=== PATIENT | female | born 1995 | race Caucasian/White ===

== ENCOUNTER 2024-04-12 09:46 | Outpatient (REF) | payer BC, SELFPAY | END 2024-04-12 09:47 | disposition home or self-care (01) | LOC: HO.HOSX 09:46 | PROVIDERS: PCP Student in an Organized Health Care Education/Training Program; Visit Provider Physical Medicine & Rehabilitation | DX: G89.29 Other chronic pain (principal); M54.9 Dorsalgia, unspecified; M79.18 Myalgia, other site; M54.2 Cervicalgia | CPT/HCPCS: 72040; 72072; 72100 ==

== ENCOUNTER 2024-04-12 09:46 | Outpatient (AMB) | payer BC, SELFPAY ==
--- NOTE | 2024-04-12 10:15 | A.OFFVIS_ITS ---
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 Patient states the pain has worsened since it first started when she was 16 years old. Denies prior injuries or surgeries to the back or neck. Denies numbness, tingling, weakness on her upper or lower extremities. Patient reports being able to ambulate and use stairs without problem. She has tried PT for her back. Allergies No Known Allergies Allergy (Verified 04/12/24 10:19) Medication List - Last Reconciled 04/12/24 by Natalia Mercado MD escitalopram oxalate (Lexapro) 20 mg PO DAILY ibuprofen 200 mg PO Q6H PRN HPI Comments Details: Chronic pain since 16 without inciting injuries. 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 She notices right side leg numbness only when she sits crossed leg. Last xray was over 10 years ago. Last PT was several years ago. Walks for exercises, 2 times/week. 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 Patient was appropriately conversant and oriented. Good historian. MSK: Inspection reveals appropriate head and neck positioning. Some tightness over right upper trapezius. Some tenderness over right SI joint. Cervical ROM was full. Spurling's sign negative. Bilateral shoulder, elbow and wrist ROM WNL. No ligamentous laxity or crepitance. No increased effusion. No specific abnormalities or instability found on inspection and palpation of the spine and extremities. Lumbar ROM was full. Negative LOIS. Negative SLR. Strength is 5/5 in all muscle groups tested. No increased tone noted. Neurological: Neurologic examination of the upper and lower extremities was nonfocal with intact sensation, muscle stretch reflexes and without focal motor deficits . Becker?s negative bilaterally. Gait is non-antalgic without loss of balance. Patient was able to perform heel walk and toe walk. Results Reviewed Results Reviewed: I reviewed records from the following: PCP at [facility] Assessment & Plan Assessment & Plan (1) Chronic back pain: Code(s): M54.9 - Dorsalgia, unspecified; G89.29 - Other chronic pain Category: Medical Qualifiers: Back pain location: low back pain Back pain laterality: midline Sciatica presence: without sciatica Qualified Code(s): M54.50 - Low back pain, unspecified; G89.29 - Other chronic pain (2) Myofascial pain: Code(s): M79.18 - Myalgia, other site Category: Medical (3) Sacroiliac joint dysfunction of right side: Code(s): M53.3 - Sacrococcygeal disorders, not elsewhere classified Category: Medical Plan Chronic axial pain, without signs of myelopathy or radiculopathy. Suspect myofascial. Possible SI joint related as well. We will start physical therapy but discussed that this is only an introduction for which should lead her to doing home exercises. We talked about long-term change of lifestyle that includes more regular exercises. Due to chronicity, we will send her for x-rays today. Assessment and plan discussed with patient, and patient was agreeable. All questions were answered thoroughly. Follow up 2 months. Natalia Mercado MD, MELINDA Board Certified, [place] Board of Physical Medicine and Rehabilitation (ABPMR) Board Certified, [place] Board of Electrodiagnostic Medicine (ABEM) Orders: Orders PT Evaluation and Treatment Today G89.29 - Other chronic pain, M54.9 - Dorsalgia, unspecified, M79.18 - Myalgia, other site XR lumbar spine 2-3V Today G89.29 - Other chronic pain, M54.9 - Dorsalgia, unspecified, M79.18 - Myalgia, other site XR cervical spine 3V Today G89.29 - Other chronic pain, M54.2 - Cervicalgia, M54.9 - Dorsalgia, unspecified, M79.18 - Myalgia, other site XR thoracic spine 3V Today G89.29 - Other chronic pain, M54.9 - Dorsalgia, unspecified, M79.18 - Myalgia, other site Coding Level of Care Code New Pt Level 4 (69124) Diagnoses Chronic midline low back pain without sciatica M54.50; G89.29 Back pain location: low back pain Back pain laterality: midline Sciatica presence: without sciatica Myofascial pain M79.18 Sacroiliac joint dysfunction of right side M53.3
[2024-04-12 10:20] VITALS: BMI 32.6
== END 2024-04-12 11:42 | disposition home or self-care (01) ==
PROVIDERS: PCP Student in an Organized Health Care Education/Training Program; Visit Provider Physical Medicine & Rehabilitation
DX: M54.50 Low back pain, unspecified (principal); G89.29 Other chronic pain; M79.18 Myalgia, other site; M53.3 Sacrococcygeal disorders, not elsewhere classified
CPT/HCPCS: 99203

== ENCOUNTER → 2024-06-14 09:14 | Outpatient (AMB) | payer BC, SELFPAY ==
--- NOTE | 2024-06-14 09:17 | A.OFFVIS_ITS ---
Intake Visit Reasons: OV - Mid/Low Back Pain Intake Note: Anh is a 29 year old female who presents today for a follow up of her mid/low back pain. At her last visit it was discussed that this may by myofascial pain or possibly related to SI joint dysfunction. A PT order was placed for [facility] which she has been attending. Patient finds this has been helpful. Allergies No Known Allergies Allergy (Verified 06/14/24 09:19) Medication List - Last Reconciled 06/14/24 by Natalia Mercado MD escitalopram oxalate (Lexapro) 20 mg PO DAILY ibuprofen 200 mg PO Q6H PRN HPI Comments Details: Chronic pain since 16 without inciting injuries. 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 She notices right side leg numbness only when she sits crossed leg. Last xray was over 10 years ago. Last PT was several years ago. Walks for exercises, 2 times/week. Thought to be myofascial. Been going to physical therapy since last visit. X- rays are unremarkable, lumbar/thoracic/cervical. Slightly better. PT been taping, which has been helping. Not everyday pain anymore. Pain usually at work, where she stands at lot, but improved after work when resting at home. Non radicular. No numbness. 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 Patient was appropriately conversant and oriented. Good historian. MSK: Inspection reveals appropriate head and neck positioning. Tenderness over right SI joint. Some sit negative. No specific abnormalities or instability found on inspection and palpation of the spine and extremities. Lumbar ROM was full. Negative LOIS. Negative SLR. Strength is 5/5 in all muscle groups tested. No increased tone noted. Neurological: Neurologic examination of the upper and lower extremities was nonfocal with intact sensation, muscle stretch reflexes and without focal motor deficits . Becker?s negative bilaterally. Gait is non-antalgic without loss of balance. Results Reviewed Results Reviewed: Ordering Physician: Natalia Gamboa Date of Service: 04/12/24 Procedure(s): XR lumbar spine 2-3V Accession Number(s): [id number] cc: Shania Peterson; Natalia Gamboa~ EXAMINATION: XR LUMBOSACRAL SPINE CLINICAL INFORMATION: Dorsalgia, unspecified M54.9. COMPARISON: None available TECHNIQUE: Three views of the lumbosacral spine. FINDINGS: The vertebral bodies and posterior elements are normal. The disc spaces are preserved and the vertebral alignment is normal. The paraspinal soft tissues are normal. XR/XR lumbar spine 2-3V IMPRESSION: Unremarkable examination. EXAMINATION: XR THORACIC SPINE CLINICAL INFORMATION: Dorsalgia, unspecified M54.9. COMPARISON: None available. TECHNIQUE: 2 views of the thoracic spine were obtained. FINDINGS: There is no fracture or bone destruction seen and the vertebral alignment is normal. There is no disc space narrowing. There is no abnormality of the paraspinal soft tissues. XR/XR thoracic spine 3V IMPRESSION: Unremarkable examination. EXAMINATION: XR CERVICAL SPINE CLINICAL INFORMATION: Cervicalgia M54.2. COMPARISON: None available TECHNIQUE: 3 views of the cervical spine were obtained. FINDINGS: There are no prevertebral soft tissue or bony abnormalities demonstrated. No compression fractures or subluxations are identified. Alignment is maintained at the atlanto-axial articulation. The disc spaces are preserved. No endplate changes are seen. The prevertebral soft tissues are normal. XR/XR cervical spine 3V IMPRESSION: Unremarkable examination. Assessment & Plan Assessment & Plan (1) Chronic back pain: Code(s): M54.9 - Dorsalgia, unspecified; G89.29 - Other chronic pain Category: Medical Qualifiers: Back pain location: low back pain Back pain laterality: midline Sciatica presence: without sciatica Qualified Code(s): M54.50 - Low back pain, unspecified; G89.29 - Other chronic pain (2) Myofascial pain: Code(s): M79.18 - Myalgia, other site Category: Medical (3) Sacroiliac joint dysfunction of right side: Code(s): M53.3 - Sacrococcygeal disorders, not elsewhere classified Category: Medical Plan She is doing great with physical therapy. She has started their own home exercise program with a stationary bike, 15 minutes a day at least. Gave her some instructions not to do reclined exercise bike that may exacerbate SI joint dysfunction. Should keep upright. We talked about trying an SI joint injection, for which I have to refer to pain management, for injection to be done under either ultrasound or fluoroscopy. Patient eager to proceed. Referral to pain management placed. Assessment and plan discussed with patient, and patient was agreeable. All questions were answered thoroughly. I will see her 2-4 weeks after injection. Natalia Mercado MD, MELINDA Board Certified, [place] Board of Physical Medicine and Rehabilitation (ABPMR) Board Certified, [place] Board of Electrodiagnostic Medicine (ABEM) Orders: Referrals Pain Management Referral G89.29 - Other chronic pain, M53.3 - Sacrococcygeal disorders, not elsewhere classified, M54.50 - Low back pain, unspecified, M79.18 - Myalgia, other site Coding Level of Care Code Est Pt Level 4 (49397) Diagnoses Chronic midline low back pain without sciatica M54.50; G89.29 Back pain location: low back pain Back pain laterality: midline Sciatica presence: without sciatica Myofascial pain M79.18 Sacroiliac joint dysfunction of right side M53.3
--- OUTSIDE RECORDS SUMMARY | 2024-06-14 09:18 | XMS_ITS | Clinical Summary ---
Author Organization [facility] Address [address] [place] [address] Care Team Providers Care Housekeeping Aide Name Role Phone Shania Peterson PA-C Primary Care Provider [phone] Source Comments PLEASE NOTE, if this patient is a minor, it may be UNLAWFUL to discuss sensitive information that is contained in these records (such as FAMILY PLANNING, MENTAL HEALTH or SUBSTANCE ABUSE) with the minor patient's parent or other person without the patient's specific authorization.[facility] Allergies No known active allergies Medications diclofenac sodium (VOLTAREN) 1 % gelIndications: Chronic thoracic back pain, unspecified back pain laterality Apply 2 g topically 2 (two) times daily 150 g 4 Active escitalopram (LEXAPRO) 20 mg tabletIndicatio ns:Anxiety and depression Take 1 Tablet by mouth once daily 30 Tablet 2 4 Active ibuprofen 400 mg tabletIndicatio ns:Chronic thoracic back pain, unspecified back pain laterality Take 1 Tablet by mouth 4 (four) times daily as needed for pain 60 Tablet 5 Active ibuprofen 400 mg tabletIndicatio ns:Chronic thoracic back pain, unspecified back pain laterality Take 1 Tablet by mouth 4 (four) times daily as needed for pain 60 Tablet 4 05/31/19 25 Discontinu ed(Reorder (E-Cancel Not Sent)) Active Problems Problem Noted Date Diagnosed Date H/O spine x-ray 05/30/2024 Overview (05/30/2024): 04/12/2024 - [facility] - lumbosacral spine x-ray - Impression: unremarkable examination Elevated bilirubin 02/12/2024 Overview (02/12/2024): 02/09/2024 - [facility]Q US - There is a complex cyst within the midportion measuring 0.3 x 0.4 x 0.4 cm. Impression: Unremarkable ultrasound of the right upper quadrant. No cholelithiasis, gallbladder wall thickening, or biliary dilatation is appreciated. Screening for malignant neoplasm of cervix perfo rmed 02/12/2024 Recurrent urinary tract infection 02/12/2024 Encounters Date Type Department Care Team Description 03/22/2024 8:00 AM EST Telemedicine Visit [address] [id number] Shania Peterson PA-C Anxiety and depression from Last 3 Months Immunizations Name Administration Dates Next Due Hep B,adult,adjuvanted (HEPLISAV) 02/09/2024, Family History Medical History Relation Name Comments No Known Problems Father No Known Problems Maternal Grandfather No Known Problems Maternal Grandmother Alcohol abuse Mother No Known Problems Paternal Grandfather No Known Problems Paternal Grandmother Alcohol abuse Sister Bipolar disorder Sister ADD / ADHD Son 1 Other (See Comments) Son 2 eye, ea r problems Relation Name Status Comments Father Alive Maternal Grandfather Alive Maternal Grandmother Alive Mother Alive Paternal Grandfather Alive Paternal Grandmother Alive Sister Alive Son 1 Alive Son 2 Alive Social History Tobacco Use Types Packs/Day Years Used Date Smoking Tobacco: Never Passive Smoke Exposure: Never Smokeless Tobacco: Never Tobacco Cessation:Counseling Given: Not Answered Alcohol Use Standard Drinks/Week Comments Yes 0 (1 standard drink = 0.6 oz pur e alcohol) social Social Connections Answer Date Recorded Connectedness 0 01/19/2024 Financial Resource Strain Answer Date R ecorded Financial Resource Strain 0 2023 Stress Answer Date Recorded Stress 0 10/04/2023 Physical Activity Answer Date Recorded Physical Activity 0 10/04/2023 Food Insecurity Answer Date Recorded Food 0 02/02/2024 Transportation Needs Answer Date Record ed Transportation 0 10/04/2023 Housing Stability Answer Date Recorded Housing 0 10/04/2023 Safety and Environment Answer Date Diego rded Safety 1 02/23/2024 Utilities Answer Date Recorded Utilities 0 10/04/2023 Employment Answer Date Recorded Stress 0 01/19/2024 Comments No Sex and Gender Information Value Date Recorded Sex Assigned at Female 12/22/2023 9:38 AM PDT Legal Sex Female 7:05 AM PST Gender Identity Female 12/22/2023 9:38 AM PDT Sexual Orientation Straight 12/22/2023 9: 38 AM PDT Last Filed Vital Signs Vital Sign Reading Time Taken Comments Blood Pressure 102/68 02/23/2024 1:43 PM EDT Pulse 85 02/23/2024 1:43 PM EDT Temperature 36.8 ??C (98.3 ??F) 02/23/2024 1:43 PM ED T Respiratory Rate 16 02/23/2024 1:43 PM EDT Oxygen Saturation - - Inhaled Oxygen Concentration - - Weight 88.9 kg (196 lb) 02/23/2024 1:43 PM EDT Height 165.1 cm (5' 5 ) 02/23/2024 1:43 PM EDT Body Mass Index 32.62 02/23/2024 1:43 PM EDT Plan of Treatment Health Maintenance Due Date Last Done Comments HPV Screening 1993 Pap + HPV 1993 Cervical Cancer Screening 2014 Pap Smear 2014 Ped-VLGCL-96 ( season) 2024 Imm-Influenza (#1) 2024 02/16/2019, 03/03/2015 Depression Monitoring 03/23/2024 12/22/2023 Alcohol and Drug Screen 05/09/2024 12/22/2023 Tobacco Screening 12/21/2024 12/22/2023 Annual Preventive Care Visit 02/22/2025 02/23/2024 Hypertension Screening (#1) 02/22/2025 Relationship Safety Screening/Counseling 02/22/2025 02/23/2024 Lipid Screening 12/21/2026 12/22/2023 Imm-DTaP/Tdap/Td (3 - Td or Tdap) 01/18/2029 019, 04/28/2015 HIV Screening Completed 12/22/2023 Hepatitis C Screening Completed 12/22/2023 Imm-Hepatitis B Completed 02/09/2024, 01/05/2024 Cervical Ablation/Cold-Knife Conization Discontinued Cervical Cryotherapy Discontinued Colposcopy Discontinued Endometrial Biopsy Discontinued Excision/Leep Discontinued HPV Genotyping Discontinued Vaginal Pap Discontinued Vulvoscopy Discontinued Procedures Procedure Name Priority Date/Time Associated Diagnosis Comments IMAGING SCANNED DOCUMENT 04/12/2024 3:00 AM EST HIV 1/2 AG & AB W/RFLX (4TH GEN) Routine 12/22/2023 10:05 AM EDT Encounter to establish care HEPATITIS C AB W/RFLX HCV RNA, QT, RT PCR Routine 12/22/2023 10:05 AM EDT Encounter to establish care LIPID PANEL Routine 12/22/2023 10:05 AM EDT Encounter to establish care from Last 3 Months or Most Recently Relevant to Health Maintenance Results * IMAGING SCANNED DOCUMENT (04/12/2024 3:00 AM EST) 04/12/2024 3:00 AM EST us Shania Peterson PA-C SCAN IMAGING Final Resul t * HEPATITIS C AB W/RFLX HCV RNA, QT, RT PCR (12/22/2023 10:05 AM EDT) HEPATITIS C ANTIBODY NON-REACT LUKE NON-REACT LUKE [facility] Comment: HCV antibody was non-reactive. There is no laboratory evidence of HCV infection. In most cases, no further action is required. However, if recent HCV exposure is suspected, a test for HCV RNA (test code 03183) is suggested. For additional information please refer to http://education.[employer].Curb Call/faq/ZFL01u6 (This link is being provided for informational/ educational purposes only.) Blood Blood / Unknown 12/22/2023 1 0:05 AM EDT 12/22/2023 10:06 AM EDT Narrative [facility] - 12/23/2023 5:01 AM EDT FASTING:YES us Shania Kristen PA-C LAB - BLOOD DRAW Edited Res ult - Final [facility] [address] [address], [facility] [address] [address] * HIV 1/2 AG & AB W/RFLX (4TH GEN) (12/22/2023 10:05 AM EDT) HIV AG/AB, 4TH GEN NON-REAC TIVE NON-REAC TIVE [facility] Comment: HIV-1 antigen and HIV-1/HIV-2 antibodies were not detected. There is no laboratory evidence of HIV infection. PLEASE NOTE: This information has been disclosed to you from records whose confidentiality may be protected by state law. ??If your state requires such protection, then the state law prohibits you from making any further disclosure of the information without the specific written consent of the person to whom it pertains, or as otherwise permitted by law. A general authorization for the release of medical or other information is NOT sufficient for this purpose. ?? For additional information please refer to http://education.[employer]/faq/LZH255 (This link is being provided for informational/ educational purposes only.) The performance of this assay has not been clinically validated in patients less than 2 years old. Blood Blood / Unknown 12/22/2023 1 0:05 AM EDT 12/22/2023 10:06 AM EDT Narrative [facility] - 12/23/2023 5:01 AM EDT FASTING:YES Shania Peterson PA-C LAB - BLOOD DRAW Final Resu lt Performing Organization Address [facility]/ZIP Co de Phone Number [facility] [address] [address], [facility] [address] [address] * LIPID PANEL (12/22/2023 10:05 AM EDT) CHOLESTEROL, TOTAL 158 <200 mg/dL [facility] HDL CHOLESTEROL 53 > OR = 50 mg/dL [facility] TRIGLYCERIDES 80 <150 mg/dL [facility] LDL-CHOLESTEROL 88 99 mg/dL (calc) [facility] Comment: Reference range: <100 Desirable range <100 mg/dL for primary prevention; ?? <70 mg/dL for patients with CHD or diabetic patients with > or = 2 CHD risk factors. LDL-C is now calculated using the Promise calculation, which is a validated novel method providing better accuracy than the Friedewald equation in the estimation of LDL-C. Carlito SS et al. QUAN. 2013;310(19): 1609-5446 (http://education.[employer]a/faq/FPY644) CHOL/HDLC RATIO 3.0 <5.0 (calc) [facility] NON-HDL CHOLESTEROL 105 <130 mg/dL (calc) [facility] Comment: For patients with diabetes plus 1 major ASCVD risk factor, treating to a non-HDL-C goal of <100 mg/dL (LDL-C of <70 mg/dL) is considered a therapeutic option. Blood Blood / Unknown 12/22/2023 1 0:05 AM EDT 12/22/2023 10:06 AM EDT Narrative [facility] - 12/23/2023 5:01 AM EDT FASTING:YES Shania Peterson PA-C LAB - BLOOD DRAW Final Resu lt [facility] [address] [address], [facility] [address] [place] [address] from Last 3 Months or Most Recently Relevant to Health Maintenance Insurance BLUE CROSS/[place] Subscriber Plan / Payer (Ef fective 2023-Present) Name:Anh Terry Relation to Subscriber:Self Name:Anh Terry Payer ID:[id number] Type:Indemnity Address: [facility] [id number] [place] [address] Care Teams Housekeeping Aide Relationship Specialty Start Date End Date Shania Peterson PA-C [address] [place] [id number] PCP - General Primary Care 10/04/23
== END | disposition home or self-care (01) ==
PROVIDERS: PCP Student in an Organized Health Care Education/Training Program; Visit Provider Physical Medicine & Rehabilitation
CPT/HCPCS: 99214

== ENCOUNTER → 2024-06-14 09:14 | Outpatient (BNVA) | payer BC, SELFPAY | PROVIDERS: PCP Student in an Organized Health Care Education/Training Program; Visit Provider Physical Medicine & Rehabilitation ==

== ENCOUNTER 2024-06-28 06:08 | Outpatient (REF) | payer BC, SELFPAY ==
--- OUTSIDE RECORDS SUMMARY | 2024-06-28 06:10 | XMS_ITS | Encounter Summary ---
Author Organization [facility] Address [address] [place] [id number] Care Team Providers Care Flood Control Engineer Name Role Phone Shania Peterson PA-C Primary Care Provider [phone]- [phone] Encounter Details Date Type Department Care Team (Late st Contact Info) Description 06/20/2024 Patient Self-Triage Initial Department [address] [place] [address] Provider, Nonbilling Social History Tobacco Use Types Packs/Day Years Used Date Smoking Tobacco: Never Passive Smoke Exposure: Never Smokeless Tobacco: Never Alcohol Use Standard Drinks/Week Comments Yes 0 [...] Orientation Straight 12/22/2023 9: 38 AM PDT documented as of this encounter Plan of Treatment Not on file documented as of this encounter Visit Diagnoses Not on filedocumented in this encounter Additional Health Concerns Assessment Noted Time PHQ-9 Depression Total Score: 20 12/21/ 024 9:33 AM PDT documented as of this encounter Care Teams Flood Control Engineer Relationship Specialty Start Date End Date Shania Peterson PA-C [address] [place], [place] [id number] PCP - General Primary Care 10/04/23 documented as of this encounter
--- OUTSIDE RECORDS SUMMARY | 2024-06-28 06:10 | XMS_ITS | Clinical Summary ---
Author Organization [facility] Address [address] [place] [address] Care Team Providers Care Water Treatment Specialist Name Role Phone Shania Peterson PA-C Primary Care Provider +1 [phone] Source Comments PLEASE NOTE, if this patient [...] Active Problems Problem Noted Date Diagnosed Date MDD (major depressive disord er), recurrent episode, moderate ([facility]) 06/26/2024 Overview (06/26/2024): 06/21/2024 - [facility] - Psychiatry - Dx: MDD - Moderate H/O spine x-ray 05/30/2024 Overview (05/30/2024): 04/12/2024 - [place] [facility] - lumbosacral spine x-ray - [...] Encounters Date Type Department Care Team Description 06/20/2024 Patient Self-Triage Initial Department 123 test [place], [place] [id number] Provider, Nonbilling from Last 3 Months Immunizations Name Administration [...] Cervical Cancer Screening 2014 Pap Smear 2014 [id number] ( season) 2024 Imm-Influenza (#1) 2024 02/16/2019, [...] Procedure Name Priority Date/Time Associated Diagnosis Comments REFERRAL TO PSYCHIATRY Routine 06/21/2024 3:00 AM EST Anxiety and depression Positive screening for depression on 9-item Patient Health Questionnaire (PHQ-9) IMAGING SCANNED DOCUMENT 04/12/2024 3:00 AM EST [...] Recently Relevant to Health Maintenance Results * REFERRAL TO PSYCHIATRY (06/21/2024 3:00 AM EST) 06/21/2024 3:00 AM EST Shania Peterson PA-C REFERRAL Final Resul t * IMAGING SCANNED DOCUMENT (04/12/2024 3:00 AM EST) 04/12/2024 3:00 AM EST us Shania Peterson PA-C SCAN IMAGING Final Resul t * HEPATITIS C AB W/RFLX HCV RNA, QT, RT PCR (12/22/2023 10:05 AM EDT) HEPATITIS C ANTIBODY NON-REACT LUKE NON-REACT LUKE [facility] Comment: HCV antibody was non-reactive. There is no laboratory evidence of HCV infection. In most cases, no further action is required. However, if recent HCV exposure is suspected, a test for HCV RNA (test code 97947) is suggested. For additional information please refer to http://TargetCast Networks.[employer]/faq/TPW22j7 (This link is being provided for informational/ educational purposes only.) Blood Blood / Unknown 12/22/2023 1 0:05 AM EDT 12/22/2023 10:06 AM EDT Narrative [employer] [facility] - 12/23/2023 5:01 AM EDT FASTING:YES us Shania Peterson PA-C LAB - BLOOD DRAW Edited Res ult - Final [employer] [facility] [address] [place] [address], [facility] [address] [address] * HIV 1/2 AG & AB W/RFLX (4TH GEN) (12/22/2023 10:05 AM EDT) HIV AG/AB, 4TH GEN NON-REAC TIVE NON-REAC TIVE [facility] Comment: HIV-1 antigen and HIV-1/HIV-2 antibodies were [...] ?? For additional information please refer to http://[employer]Cast [employer].Mimoona.Forgame/faq/PIZ099 (This link is being provided for informational/ educational purposes only.) The performance of this assay has not been clinically validated in patients less than 2 years old. Blood Blood / Unknown 12/22/2023 1 0:05 AM EDT 12/22/2023 10:06 AM EDT Narrative [employer] - 12/23/2023 5:01 AM EDT FASTING:YES Shania Peterson PA-C LAB - BLOOD DRAW Final Resu lt Performing Organization Address [facility]/ZIP Co de Phone Number judo [facility] [address] [address], judo [address] [address] * LIPID PANEL (12/22/2023 10:05 AM EDT) [facility] Signature CHOLESTEROL, TOTAL 158 <200 mg/dL [facility] HDL CHOLESTEROL 53 > OR = 50 mg/dL jud[facility] TRIGLYCERIDES 80 <150 mg/dL [facility] LDL-CHOLESTEROL 88 99 mg/dL (calc) [facility] Comment: Reference range: <100 Desirable range <100 mg/dL for primary prevention; ?? <70 mg/dL for patients with CHD or diabetic patients with > or = 2 CHD risk factors. LDL-C is now calculated using the Promise calculation, which is a validated novel method providing better accuracy than the Friedewald equation in the estimation of LDL-C. Carlito CHANG et al. QUAN. 2013;310(19): 8719-1281 (http://education.ShotSpotter.Forgame/faq/HJS224) CHOL/HDLC RATIO 3.0 <5.0 (calc) jud[facility] NON-HDL CHOLESTEROL 105 <130 mg/dL (calc) [facility] Comment: For patients with diabetes plus 1 major ASCVD risk factor, treating to a non-HDL-C goal of <100 mg/dL (LDL-C of <70 mg/dL) is considered a therapeutic option. Blood Blood / Unknown 12/22/2023 1 0:05 AM EDT 12/22/2023 10:06 AM EDT Narrative [facility] - 12/23/2023 5:01 AM EDT FASTING:YES Shania Peterson PA-C LAB - BLOOD DRAW Final Resu lt Performing Organization Address [facility]/ZIP Co de Phone Number judo [facility] [address] [address], judo [facility] [address] [place] [address] from Last 3 Months or Most Recently Relevant to Health Maintenance Insurance ELIAS HERNÁNDEZ/SAQIB WALLACE Member Subscriber Plan / Payer (Ef fective 2023-Present) Name:Anh Terry Relation to Subscriber:Self Name:Anh Terry Payer ID:[id number] Type:Indemni Address: [facility] [address] [place] [address] Care Teams Water Treatment Specialist Relationship Specialty Start Date End Date Shania Peterson PA-C [address] [place] [address] PCP - General Primary Care 10/04/23
== END 2024-06-28 06:09 | disposition home or self-care (01) ==
LOC: CF 06:08
PROVIDERS: Visit Provider Internal Medicine
DX: Z13.89 Encounter for screening for other disorder (principal)

== ENCOUNTER 2024-07-19 06:05 | Outpatient (REF) | payer BC, SELFPAY ==
--- NOTE | ~2024-07-19 | FL_ITS ---
EXAMINATION: FL GUIDANCE ONLY HISTORY: M53.3 - Sacrococcygeal disorders, not elsewhere classified COMPARISON: None available. TECHNIQUE: Fluoroscopy time: 0.1 minutes. Cumulative Dose: 3.02 mGy. DAP: 0.0212 mGym2 Images: 2. FINDINGS: Images demonstrate a needle in the region of the right sacroiliac joint. FL/FL guidance in treatment room IMPRESSION: Fluoroscopy during procedure. Please see procedure report for additional information. Electronically signed by: Rashard Gordon MD 07/19/2024 12:51 PM EDT
--- OUTSIDE RECORDS SUMMARY | 2024-07-19 06:08 | XMS_ITS | Clinical Summary ---
Author Organization [facility] Address [address] [place] [address] Care Team Providers Care Plant Ecologist Name Role Phone Shania Peterson PA-C Primary Care Provider [phone]- [phone] Source Comments PLEASE NOTE, if this patient is a minor, it may be UNLAWFUL to discuss sensitive information that is contained in these records (such as FAMILY PLANNING, MENTAL HEALTH or SUBSTANCE ABUSE) with the minor patient's parent or other person without the patient's specific authorization.[facility] Allergies No known active allergies Medications diclofenac sodium (VOLTAREN) 1 % gelIndications:C hronic thoracic back pain, unspecified back pain laterality Apply 2 g topically 2 (two) times daily 150 g 4 Active escitalopram (LEXAPRO) 20 mg tabletIndication s:Anxiety and depression Take 1 Tablet by mouth once daily 30 Tablet 2 4 Active ibuprofen 400 mg tabletIndication s:Chronic thoracic back pain, unspecified back pain laterality Take 1 Tablet by mouth 4 (four) times daily as needed for pain 60 Tablet 5 Active Active Problems Problem Noted Date Diagnosed Date MDD (major depressive disord er), recurrent episode, moderate ([facility] 06/26/2024 Overview (06/26/2024): 06/21/2024 - [facility] - Psychiatry - Dx: MDD - Moderate H/O spine x-ray 05/30/2024 Overview (05/30/2024): 04/12/2024 - [place] [facility] - lumbosacral spine x-ray - [...] 06/20/2024 Patient Self-Triage Initial Department [address] [place] [address] Provider, Nonbilling from Last 3 Months Immunizations [...] Cervical Cancer Screening 2014 Pap Smear 2014 [id number] ( season) 2024 Imm-Influenza (#1) 2024 02/16/2019, [...] depression on 9-item Patient Health Questionnaire (PHQ-9) HIV 1/2 AG & AB W/RFLX (4TH [...] 3:00 AM EST) 06/21/2024 3:00 AM EST us Shania Peterson PA-C REFERRAL Final Resul t * HEPATITIS C AB W/RFLX HCV RNA, QT, RT PCR (12/22/2023 10:05 AM EDT) HEPATITIS C ANTIBODY NON-REACT LUKE NON-REACT LUKE [facility] [employer] Comment: HCV antibody was non-reactive. There is no laboratory evidence of HCV infection. In most cases, no further action is required. However, if recent HCV exposure is suspected, a test for HCV RNA (test code 72111) is suggested. For additional information please refer to http://education.BDNA.[employer]/faq/LPR97a1 (This link is being provided for informational/ educational purposes only.) Blood Blood / Unknown 12/22/2023 1 0:05 AM EDT 12/22/2023 10:06 AM EDT Narrative [facility] - 12/23/2023 5:01 AM EDT FASTING:YES Shania Peterson PA-C LAB - BLOOD DRAW Edited Res ult - Final Performing Organization Address [facility]/ZIP Co de Phone Number [facility] [address] [address], [facility] [address] [address] * HIV 1/2 AG & AB W/RFLX (4TH GEN) (12/22/2023 10:05 AM EDT) HIV AG/AB, 4TH GEN NON-REAC TIVE NON-REAC TIVE [facility] Comment: HIV-1 antigen and HIV-1/HIV-2 antibodies [...] ?? For additional information please refer to http://education.SimpleDeal/faq/TRL601 (This link is being provided for informational/ educational purposes only.) The performance of this assay has not been clinically validated in patients less than 2 years old. Blood Blood / Unknown 12/22/2023 1 0:05 AM EDT 12/22/2023 10:06 AM EDT Narrative [facility] - 12/23/2023 5:01 AM EDT FASTING:YES Shania Peterson PA-C LAB - BLOOD DRAW Final Resu lt Performing Organization Address [facility]/ZIP Co de Phone Number [facility] [address] [address], [facility] [address] [address] * LIPID PANEL (12/22/2023 10:05 AM EDT) CHOLESTEROL, TOTAL 158 <200 mg/dL [facility] HDL CHOLESTEROL 53 > OR = 50 mg/dL [facility] TRIGLYCERIDES 80 <150 mg/dL [facility] LDL-CHOLESTEROL 88 99 mg/dL (calc) [facility] Comment: Reference range: <100 Desirable range <100 mg/dL for primary prevention; ?? <70 mg/dL for patients with CHD or diabetic patients with > or = 2 CHD risk factors. LDL-C is now calculated using the Promise calculation, which is a validated novel method providing better accuracy than the Friedewald equation in the estimation of LDL-C. Carlito SS et al. QUAN. 2013;310(19): 9711-4478 (http://education.IPM Safety Services/faq/XFO312) CHOL/HDLC RATIO 3.0 <5.0 (calc) [facility] NON-HDL CHOLESTEROL 105 <130 mg/dL (calc) [facility] Comment: For patients with diabetes plus 1 major ASCVD risk factor, treating to a non-HDL-C goal of <100 mg/dL (LDL-C of <70 mg/dL) is considered a therapeutic option. Blood Blood / Unknown 12/22/2023 1 0:05 AM EDT 12/22/2023 10:06 AM EDT Narrative [facility] - 12/23/2023 5:01 AM EDT FASTING:YES Shania Peterson PA-C LAB - BLOOD DRAW Final Resu lt [facility] [address] [place] [address], [facility] [address] [place] [address] from Last 3 Months or Most Recently Relevant to Health Maintenance Insurance BLUE CROSS/BS [place] Member Subscriber Plan / Payer (Ef fective 2023-Present) Name:Anh Terry Relation to Subscriber:Self Name:Anh Terry Payer ID:[id number] Type:Indemnity Address: [facility] [id number] [place] [address] Care Teams Plant Ecologist Relationship Specialty Start Date End Date Shania Peterson PA-C [address] [place] [address] PCP - General Primary Care 10/04/23
--- OUTSIDE RECORDS SUMMARY | 2024-07-19 06:08 | XMS_ITS | Encounter Summary ---
Author Organization [facility] Address [address] [place] [address] Care Team Providers Care Paint Formulator Name Role Phone Shania Peterson PA-C Primary Care Provider [phone] [phone] Encounter Details Date Type Department Care Team (Late st Contact Info) Description 06/20/2024 Patient Self-Triage Initial Department [address] [place] [address] Provider, Nonbilling Social History Tobacco [...] documented as of this encounter Care Teams Paint Formulator Relationship Specialty Start Date End Date Shania Peterson PA-C [address] [place], [place] [id number] PCP - General Primary Care 10/04/23 documented as of this encounter
== END 2024-07-19 06:06 | disposition home or self-care (01) ==
LOC: CF 06:05
PROVIDERS: Visit Provider Internal Medicine
DX: M53.3 Sacrococcygeal disorders, not elsewhere classified (principal)
CPT/HCPCS: 27096; J2003; J2795

== ENCOUNTER 2024-07-19 09:23 | Outpatient (AMB) | payer BC, SELFPAY ==
[2024-07-19 09:37] VITALS: BP 98/71; PULSE 54; RESP 16; O2SAT 95
--- NOTE | 2024-07-19 09:37 | A.OFFVIS_ITS ---
Vital Signs 07/19/24 09:37 07/19/24 10:16 BP 98/71 99/62 Blood Pressure Location Lt brachial Lt brachial Position Sitting Sitting Respiration 16 16 Pulse 54 58 Pulse Source Pulse Oximeter Pulse Oximeter Pulse Oximetry (%) 95 98 Oxygen Delivery Method Room Air Room Air Intake Visit Reasons: Right Dx SIJ inj Cable Television Installer Required: No Allergies No Known Allergies Allergy (Verified 07/19/24 09:38) Medication List - Last Reconciled 07/19/24 by Natasha Salinas LPN escitalopram oxalate (Lexapro) 20 mg PO DAILY ibuprofen 200 mg PO Q6H PRN HPI HPI Right Dx SIJ inj: Details: Patient presents for scheduled procedure. Denies any recent cough, cold, infection, fever or other significant changes in medical history since last office visit. 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 Immediately prior to starting the procedure, a time-out safety check was conducted. The patient's identification, procedure name, procedure site, and procedure laterality were confirmed with the patient. ? Patient was placed prone on the fluoroscopy table and the lumbosacral area was prepped using ChloraPrep and draped with sterile drapein standard fashion. The C-arm was rotated in a contralateral oblique fashion until the medial border of the iliac crest no longer foreshadowed the posterior sacroiliac joint line. The skin and subcutaneous tissue was anesthetized using 1 mL of 0.75% plain lidocaine with 1.5-inch 25-gauge needle in the middle region of the joint line.? A 3.5-inch 22-gauge spinal needle with small bend on the tip was slowly advanced towards the joint line, coaxial to the x-ray beam. Once bony content was obtained, the needle was easily slid into the intra-articular space.? Intra- articular needle position was confirmed using lateral fluoroscopy.? A total volume of 2.5mL of solution 0.5% of ropivacaine was injected intra-articularly. The stylet was reinserted and needle was removed. The patient tolerated the procedure well. Patient denied any lower extremity weakness or numbness. Patient was observed for 30 min and was discharged after fulfilling the standard discharge criteria. Coding 59113 - Sacroiliac Procedure code (CPT) selection complete Assessment & Plan Assessment & Plan (1) Sacroiliac joint dysfunction of right side: Code(s): M53.3 - Sacrococcygeal disorders, not elsewhere classified Category: Medical Plan Patient is status post diagnostic right sacroiliac joint injection. Patient tolerated procedure well and was discharged home in stable condition with discharge instructions. All questions were answered. We will follow-up via telephone or in clinic to assess response to therapy. A follow-up appointment was made during today's visit. Orders: Orders FL guidance in treatment room Today M53.3 - Sacrococcygeal disorders, not elsewhere classified Coding Level of Care Code Procedure Only Diagnoses Sacroiliac joint dysfunction of right side M53.3 CPT Codes Coding - Joint 9: 61327 - Sacroiliac ([id number])
[2024-07-19 10:16] VITALS: BP 99/62; PULSE 58; RESP 16; O2SAT 98
--- OUTSIDE RECORDS SUMMARY | 2024-07-19 10:57 | XMS_ITS | Clinical Summary ---
Author Organization [facility] Address [address] [place] [address] Care Team Providers Care Chainstitch Tunnel Elastic Operator Name Role Phone Shania Peterson PA-C Primary Care Provider [phone]- [phone] Source Comments PLEASE NOTE, if this patient [...] (major depressive disord er), recurrent episode, moderate ([facility]) 06/26/2024 Overview (06/26/2024): 06/21/2024 - [facility] - Psychiatry - Dx: MDD - Moderate H/O spine x-ray 05/30/2024 Overview (05/30/2024): 04/12/2024 - [place] [facility] - lumbosacral spine x-ray - [...] 06/20/2024 Patient Self-Triage Initial Department [address] [place] [address] Provider, Nonbilling from Last 3 Months Immunizations [...] Cervical Cancer Screening 2014 Pap Smear 2014 [id number] ( season) 2024 Imm-Influenza (#1) 2024 02/16/2019, [...] HEPATITIS C ANTIBODY NON-REACT LUKE NON-REACT LUKE [facility] Comment: HCV antibody was non-reactive. There is no laboratory evidence of HCV infection. In most cases, no further action is required. However, if recent HCV exposure is suspected, a test for HCV RNA (test code 81819) is suggested. For additional information please refer to http://education.OneClass.[employer]/faq/GRH34i7 (This link is being provided for informational/ educational purposes only.) Blood Blood / Unknown 12/22/2023 1 0:05 AM EDT 12/22/2023 10:06 AM EDT Narrative [facility] - 12/23/2023 5:01 AM EDT FASTING:YES Shania Peterson PA-C LAB - BLOOD DRAW Edited Res ult - Final Performing Organization Address [facility]/ZIP Co de Phone Number [facility] [address] [address], [facility] [address] [address] * HIV 1/2 AG & AB W/RFLX (4TH GEN) (12/22/2023 10:05 AM EDT) HIV AG/AB, 4TH GEN NON-REAC TIVE NON-REAC TIVE [facility] Comment: HIV-1 antigen and HIV-1/HIV-2 antibodies [...] ?? For additional information please refer to http://education.copygram/faq/GKS599 (This link is being provided for informational/ educational purposes only.) The performance of this assay has not been clinically validated in patients less than 2 years old. Blood Blood / Unknown 12/22/2023 1 0:05 AM EDT 12/22/2023 10:06 AM EDT Narrative [facility] - 12/23/2023 5:01 AM EDT FASTING:YES Shania Peterson PA-C LAB - BLOOD DRAW Final Resu lt Performing Organization Address [facility]/ZIP Co de Phone Number [facility] [address] [address], [facility] [address] [address] * LIPID PANEL (12/22/2023 10:05 AM EDT) CHOLESTEROL, TOTAL 158 <200 mg/dL [facility] HDL CHOLESTEROL 53 > OR = 50 mg/dL [facility] TRIGLYCERIDES 80 <150 mg/dL [facility] LDL-CHOLESTEROL 88 99 mg/dL (calc) [facility] Comment: Reference range: <100 Desirable range <100 mg/dL for primary prevention; ?? <70 mg/dL for patients with CHD or diabetic patients with > or = 2 CHD risk factors. LDL-C is now calculated using the Promise calculation, which is a validated novel method providing better accuracy than the Friedewald equation in the estimation of LDL-C. Carlito SS et al. QUAN. 2013;310(19): 9815-0261 (http://education.Sedimap/faq/HBS416) CHOL/HDLC RATIO 3.0 <5.0 (calc) [facility] NON-HDL CHOLESTEROL 105 <130 mg/dL (calc) [facility] Comment: For patients with diabetes plus 1 major ASCVD risk factor, treating to a non-HDL-C goal of <100 mg/dL (LDL-C of <70 mg/dL) is considered a therapeutic option. Blood Blood / Unknown 12/22/2023 1 0:05 AM EDT 12/22/2023 10:06 AM EDT Narrative [facility] - 12/23/2023 5:01 AM EDT FASTING:YES Shania Peterson PA-C LAB - BLOOD DRAW Final Resu lt [facility] [address] [place] [address], [facility] [address] [place] [address] from Last 3 Months or Most Recently Relevant to Health Maintenance Insurance BLUE CROSS/BS [place] Member Subscriber Plan / Payer (Ef fective 2023-Present) Name:Anh Terry Relation to Subscriber:Self Name:Anh Terry Payer ID:[id number] Type:Indemnity Address: [facility] [id number] [place] [address] Care Teams Chainstitch Tunnel Elastic Operator Relationship Specialty Start Date End Date Shania Peterson PA-C [address] [place] [address] PCP - General Primary Care 10/04/23
--- OUTSIDE RECORDS SUMMARY | 2024-07-19 10:57 | XMS_ITS | Encounter Summary ---
Author Organization [facility] Address [address] [place] [address] Care Team Providers Care Apartment Leasing Manager Name Role Phone Shania Peterson PA-C Primary Care Provider +1 [phone] Encounter Details Date Type Department Care Team (Late st Contact Info) Description 06/20/2024 Patient Self-Triage Initial Department [address] [place] [address] Provider, Nonbilling Social History Tobacco [...] documented as of this encounter Care Teams Apartment Leasing Manager Relationship Specialty Start Date End Date Shania Peterson PA-C [address] [place], [place] [phone] PCP - General Primary Care 10/04/23 documented as of this encounter
== END 2024-07-19 10:06 | disposition home or self-care (01) ==
LOC: HO.PMCPRC 09:23
PROVIDERS: PCP Student in an Organized Health Care Education/Training Program; Visit Provider Internal Medicine
DX: M53.3 Sacrococcygeal disorders, not elsewhere classified (principal)
CPT/HCPCS: 27096

== ENCOUNTER 2024-07-23 10:44 | Outpatient (AMB) | payer BC, SELFPAY ==
--- NOTE | 2024-07-23 10:46 | MHC.OFFVIS ---
Vital Signs 07/23/24 10:47 Height 5 ft 5 in Weight 201 lb BMI 33.4 BP 126/65 Blood Pressure Location Lt brachial Position Sitting Respiration 15 Pulse 75 Pulse Source Pulse Oximeter Pulse Oximetry (%) 98 Oxygen Delivery Method Room Air Intake Visit Reasons: s/p right Dx SIJ inj Escrow Manager Required: No Allergies No Known Allergies Allergy (Verified 08/09/24 09:24) Medication List - Last Reconciled 07/23/24 by Natasha Salinas LPN escitalopram oxalate (Lexapro) 20 mg PO DAILY ibuprofen 200 mg PO Q6H PRN HPI HPI s/p right Dx SIJ inj: Details: History of Present Illness The patient is a 29-year-old female presenting with sacroiliac joint dysfunction. She received a diagnostic injection in the right sacroiliac joint resulting in complete pain relief for three days, with pain recurrence after prolonged sitting. She has been managing her condition with physical therapy, exercise, and weight loss efforts. Her occupation involves significant standing and physical tasks, which may contribute to symptom exacerbation. The history of two vaginal deliveries raises concerns about ligamentous changes influencing her condition. Pain Description - Onset: Persistent pain exacerbated after prolonged sitting. - Quality: Severe prior to injection, 100% relief for 3 days post-injection. - Location: Right sacroiliac joint. - Radiation: Not specified. - Aggravating Factors: Sitting on a hard surface. - Alleviating Factors: Diagnostic injection, rest. - Functional interference: Required medication multiple times daily for symptom control prior to injection. Physical Exam - Appears afebrile. - Alert and oriented. - Mood and affect appropriate. - Follows and participates in conversation appropriately. - Respiratory effort is unlabored. - Able to transition from sit to stand unassisted. - Ambulates with bilaterally normal heel strike and toe off. - Able to stand and walk on toes and heels. Results - Diagnostic test: Right sacroiliac joint injection resulted in 100% pain relief for three days. Pain Management - Affect: No specific psychological impact discussed. - Analgesia: Diagnostic injection provided 100% relief for 3 days; previously required multiple medications daily. - Adverse Effects: None noted from the diagnostic injection. - Activities of Daily Living: Pain affects function, with relief post-injection improving daily activities. - Aberrant Drug Related Behaviors: None discussed. 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 The patient will continue with weight loss efforts, physical therapy, and exercise regimens, including glute strength training and swimming, to address sacroiliac joint dysfunction in the alf. Patient was informed and verbally consented to the use of an ambient scribe for clinic note documentation during this visit. Discussion Notes I discussed with the patient the likely diagnosis of sacroiliac joint dysfunction and the management plan, including the therapeutic right sacroiliac joint injection. We reviewed the temporary nature of the relief provided by steroid injections and the importance of considering long-term solutions such as weight management, physical therapy, and specific exercises. I emphasized the role of strengthening exercises, including glute strengthening and swimming, which can offer long-term stability and relief. The patient agreed to proceed with the therapeutic injection, understanding that the injection provides a temporary benefit while the core of management will revolve around lifestyle modifications. We also discussed that even if the injection provides significant relief, the effects are not permanent. She agreed to follow up as needed and engage in the recommended activities and therapies. Patient Instructions - Schedule the right therapeutic sacroiliac joint injection. - Continue with physical therapy sessions. - Engage in swimming and other low-impact exercises. - Focus on weight loss and strengthening exercises, particularly for glutes. - Monitor symptoms and report any significant changes or concerns. Coding Level of Care Code Est Pt Level 3 (80260) Diagnoses Sacroiliac joint dysfunction of right side M53.3
[2024-07-23 10:47] VITALS: BP 126/65; PULSE 75; RESP 15; O2SAT 98; BMI 33.4
== END 2024-07-23 11:20 | disposition home or self-care (01) ==
LOC: HO.PMC 10:44
PROVIDERS: PCP Student in an Organized Health Care Education/Training Program; Visit Provider Internal Medicine
DX: M53.3 Sacrococcygeal disorders, not elsewhere classified (principal)
CPT/HCPCS: 99213

== ENCOUNTER → 2024-07-23 10:44 | Outpatient (BNVA) | payer BC, SELFPAY | PROVIDERS: PCP Student in an Organized Health Care Education/Training Program; Visit Provider Internal Medicine ==

== ENCOUNTER 2024-08-09 09:00 | Outpatient (AMB) | payer BC, SELFPAY ==
--- OUTSIDE RECORDS SUMMARY | 2024-08-09 09:14 | XMS_ITS | Clinical Summary ---
Author Organization [facility] Address [address] [place] [address] Care Team Providers Care Head Of Strategy Name Role Phone Shania Peterson PA-C Primary Care Provider [phone] Source Comments PLEASE NOTE, if this patient [...] (two) times daily 150 g 4 Active ibuprofen 400 mg tabletIndicatio ns:Chronic thoracic back pain, unspecified back pain laterality Take 1 Tablet by mouth 4 (four) times daily as needed for pain 60 Tablet 5 Active escitalopram (LEXAPRO) 20 mg tabletIndicatio ns:Anxiety and depression Take 1 Tablet by mouth once daily 30 Tablet 2 5 Active escitalopram (LEXAPRO) 20 mg tabletIndicatio ns:Anxiety and depression Take 1 Tablet by mouth once daily 30 Tablet 2 4 08/09/19 25 Discontinu ed(Reorder (E-Cancel Not Sent)) Active Problems Problem Noted Date Diagnosed Date Sacroiliac joint dysfunction 07/27/2024 Overview (07/27/2024): 07/19/2024 - [facility] - Sacroiliac joint dysfunction of right side s/p sacroiliac joint injection MDD (major depressive disord er), recurrent episode, moderate ([facility]) 06/26/2024 Overview (06/26/2024): 06/21/2024 - [facility] - Psychiatry - Dx: MDD - Moderate H/O spine x-ray 05/30/2024 Overview (05/30/2024): 04/12/2024 - [facility] - lumbosacral spine x-ray - [...] 06/20/2024 Patient Self-Triage Initial Department [address] [place], [place] [id number] Provider, Nonbilling from Last 3 Months Immunizations Immunization Administration Dates Next Due Hep B,adult,adjuvanted (HEPLISAV) [...] Health Maintenance Due Date Last Done Comments Anxiety Screening 1993 HPV Screening 1993 Pap + HPV 1993 Cervical Cancer Screening 2014 Pap Smear 2014 [id number] ( season) 2024 Imm-Influenza (#1) 2024 02/16/2019, [...] Name Priority Date/Time Associated Diagnosis Comments REFERRAL SCANNED DOCUMENT 07/19/2024 3:00 AM EDT REFERRAL TO PSYCHIATRY Routine 06/21/2024 3:00 AM [...] Relevant to Health Maintenance Results * REFERRAL SCANNED DOCUMENT (07/19/2024 3:00 AM EDT) 07/19/2024 3:00 AM EDT us Shania Peterson PA-C SCAN REFERRAL Final Resul t * REFERRAL TO PSYCHIATRY (06/21/2024 3:00 AM EST) 06/21/2024 3:00 AM EST us Shania Peterson PA-C REFERRAL Final Resul t * HEPATITIS C AB W/RFLX HCV RNA, QT, RT PCR (12/22/2023 10:05 AM EDT) HEPATITIS C ANTIBODY NON-REACT LUKE NON-REACT LUKE [facility] Comment: HCV antibody was non-reactive. There is no laboratory evidence of HCV infection. In most cases, no further action is required. However, if recent HCV exposure is suspected, a test for HCV RNA (test code 76270) is suggested. For additional information please refer to http://Raptr.TrenStar/faq/PHF23p6 (This link is being provided for informational/ educational purposes only.) Blood Blood / Unknown 12/22/2023 1 0:05 AM EDT 12/22/2023 10:06 AM EDT Narrative [facility] - 12/23/2023 5:01 AM EDT FASTING:YES us Shania Peterson PA-C LAB - BLOOD DRAW Edited Res ult - Final [facility] [address] [place] [id number], [facility] [address] [place] [phone] * HIV 1/2 AG & AB W/RFLX (4TH GEN) (12/22/2023 10:05 AM EDT) HIV AG/AB, 4TH GEN NON-REAC TIVE NON-REAC TIVE [facility] Comment: HIV-1 antigen and HIV-1/HIV-2 antibodies were [...] ?? For additional information please refer to http://Raptr.TrenStar/faq/GWN198 (This link is being provided for informational/ educational purposes only.) The performance of this assay has not been clinically validated in patients less than 2 years old. Blood Blood / Unknown 12/22/2023 1 0:05 AM EDT 12/22/2023 10:06 AM EDT Narrative [facility] - 12/23/2023 5:01 AM EDT FASTING:YES Shania Peterson PA-C LAB - BLOOD DRAW Final Resu lt [facility] [address] [address], [place] [facility] [address] [place] [address] * LIPID PANEL (12/22/2023 10:05 AM EDT) CHOLESTEROL, TOTAL 158 <200 mg/dL [facility] HDL CHOLESTEROL 53 > OR = 50 mg/dL [facility] TRIGLYCERIDES 80 <150 mg/dL [facility] LDL-CHOLESTEROL 88 99 mg/dL (calc) [facility] Comment: Reference range: <100 Desirable range <100 mg/dL for primary prevention; ?? <70 mg/dL for patients with CHD or diabetic patients with > or = 2 CHD risk factors. LDL-C is now calculated using the Carlito-Ross calculation, which is a validated novel method providing better accuracy than the Friedewald equation in the estimation of LDL-C. Carlito CHANG et al. QUAN. 2013;310(19): 7109-4627 (http://education.Cellular Dynamics International.LynxIT Solutions/faq/FOL916) CHOL/HDLC RATIO 3.0 <5.0 (calc) [facility] NON-HDL CHOLESTEROL 105 <130 mg/dL (calc) [facility] Comment: For patients with diabetes plus 1 major ASCVD risk factor, treating to a non-HDL-C goal of <100 mg/dL (LDL-C of <70 mg/dL) is considered a therapeutic option. Blood Blood / Unknown 12/22/2023 1 0:05 AM EDT 12/22/2023 10:06 AM EDT Narrative [facility] - 12/23/2023 5:01 AM EDT FASTING:YES us Shania Peterson PA-C LAB - BLOOD DRAW Final Resu lt [facility] [address] [address], [facility] [address] [place] [address] from Last 3 Months or Most Recently Relevant to Health Maintenance Insurance ELIAS HERNÁNDEZ/SAQIB WALLACE Member Subscriber Plan / Payer (Ef fective 2023-Present) Name:Anh Terry Relation to Subscriber:Self Name:Anh Terry Payer ID:[id number] Type:Indemnity Address: [facility] [address] [place] [address] Care Teams Head Of Strategy Relationship Specialty Start Date End Date Shania Peterson PA-C [address] [place] [address] PCP - General Primary Care 10/04/23
--- NOTE | 2024-08-09 09:16 | MHC.OFFVIS ---
Vital Signs 08/09/24 09:19 Height 5 ft 5 in Weight 201 lb BMI 33.4 Intake Visit Reasons: OV- Back pain Intake Note: Anh 29 yr old female presents today for her follow up visit for her back pain s/p right Dx SIJ injection with pain management 07/19/24. States she has not had any pain since and has another one scheduled for next .. Allergies No Known Allergies Allergy (Verified 08/09/24 09:24) Medication List - Last Reconciled 08/09/24 by Natalia Mercado MD escitalopram oxalate (Lexapro) 20 mg PO DAILY ibuprofen 200 mg PO Q6H PRN HPI Comments Details: Chronic pain since 16 without inciting injuries. 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 She notices right side leg numbness only when she sits crossed leg. Thought to be myofascial. Been going to physical therapy since last visit. X-rays are unremarkable, lumbar/thoracic/cervical. Slightly better. PT been taping, which has been helping. Not everyday pain anymore. Pain usually at work, where she stands at lot, but improved after work when resting at home. Non radicular. No numbness. She's done diagnostic SI joint injection under Dr. Obando 07/24/23, no pain since then. Feels it only with pushing herself at work . Numbness only after injection 10 minutes, didn't last. No numbness anymor after. Non radicular when she has the pain, if any. 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 Patient was appropriately conversant and oriented. Good historian. MSK: Inspection reveals appropriate head and neck positioning. No more tenderness over SI joint. Neurological: Neurologic examination of the upper and lower extremities was nonfocal with intact sensation, muscle stretch reflexes and without focal motor deficits . Gait is non-antalgic without loss of balance. Results Reviewed Results Reviewed: Ordering Physician: Natalia Gamboa Date of Service: 04/12/24 Procedure(s): XR lumbar spine 2-3V Accession Number(s): [id number] cc: Shania Peterson; Natalia Gamboa~ EXAMINATION: XR LUMBOSACRAL SPINE CLINICAL INFORMATION: Dorsalgia, unspecified M54.9. COMPARISON: None available TECHNIQUE: Three views of the lumbosacral spine. FINDINGS: The vertebral bodies and posterior elements are normal. The disc spaces are preserved and the vertebral alignment is normal. The paraspinal soft tissues are normal. XR/XR lumbar spine 2-3V IMPRESSION: Unremarkable examination. EXAMINATION: XR THORACIC SPINE CLINICAL INFORMATION: Dorsalgia, unspecified M54.9. COMPARISON: None available. TECHNIQUE: 2 views of the thoracic spine were obtained. FINDINGS: There is no fracture or bone destruction seen and the vertebral alignment is normal. There is no disc space narrowing. There is no abnormality of the paraspinal soft tissues. XR/XR thoracic spine 3V IMPRESSION: Unremarkable examination. EXAMINATION: XR CERVICAL SPINE CLINICAL INFORMATION: Cervicalgia M54.2. COMPARISON: None available TECHNIQUE: 3 views of the cervical spine were obtained. FINDINGS: There are no prevertebral soft tissue or bony abnormalities demonstrated. No compression fractures or subluxations are identified. Alignment is maintained at the atlanto-axial articulation. The disc spaces are preserved. No endplate changes are seen. The prevertebral soft tissues are normal. XR/XR cervical spine 3V IMPRESSION: Unremarkable examination. Reviewed notes from pain management. Assessment & Plan Assessment & Plan (1) Chronic back pain: Code(s): M54.9 - Dorsalgia, unspecified; G89.29 - Other chronic pain Category: Medical Qualifiers: Back pain location: low back pain Back pain laterality: midline Sciatica presence: without sciatica Qualified Code(s): M54.50 - Low back pain, unspecified; G89.29 - Other chronic pain (2) Myofascial pain: Code(s): M79.18 - Myalgia, other site Category: Medical (3) Sacroiliac joint dysfunction of right side: Code(s): M53.3 - Sacrococcygeal disorders, not elsewhere classified Category: Medical Plan Right SI joint pain improved after diagnostic injection. Scheduled for therapeutic injection under Dr. Obando 08/16/2024. Hoping this will bring long-lasting relief. Discussed that the most important thing to do, is to continue exercises and stretches at home. This is a lifelong change of habits and patient verbalized agreement. Finished off PT, graduate to home exercises. No further follow up with me unless symptoms change. Assessment and plan discussed with patient, and patient was agreeable. All questions were answered thoroughly. Natalia Mercado MD, MELINDA Board Certified, [place] Board of Physical Medicine and Rehabilitation (ABPMR) Board Certified, [place] Board of Electrodiagnostic Medicine (ABEM) Coding Level of Care Code Est Pt Level 3 (14946) Diagnoses Chronic midline low back pain without sciatica M54.50; G89.29 Back pain location: low back pain Back pain laterality: midline Sciatica presence: without sciatica Myofascial pain M79.18 Sacroiliac joint dysfunction of right side M53.3
[2024-08-09 09:19] VITALS: BMI 33.4
== END 2024-08-09 09:47 | disposition home or self-care (01) ==
LOC: HO.HOS 09:01
PROVIDERS: PCP Student in an Organized Health Care Education/Training Program; Visit Provider Physical Medicine & Rehabilitation
DX: M54.50 Low back pain, unspecified (principal); G89.29 Other chronic pain; M79.18 Myalgia, other site; M53.3 Sacrococcygeal disorders, not elsewhere classified
CPT/HCPCS: 99213

== ENCOUNTER → 2024-08-09 09:00 | Outpatient (BNVA) | payer BC, SELFPAY | PROVIDERS: PCP Student in an Organized Health Care Education/Training Program; Visit Provider Physical Medicine & Rehabilitation ==

== ENCOUNTER 2024-08-16 06:11 | Outpatient (REF) | payer BC, SELFPAY ==
--- NOTE | ~2024-08-16 | FL_ITS ---
EXAMINATION: FL GUIDANCE ONLY HISTORY: M53.3 - Sacrococcygeal disorders, not elsewhere classified COMPARISON: None available. TECHNIQUE: Fluoroscopy time: 10.3 seconds. Cumulative Dose: 4.5468 mGy. DAP: 0.3428 mGym2 Images: 2. FINDINGS: Images demonstrate a needle in the region of the right sacroiliac joint. FL/FL guidance in treatment room IMPRESSION: Fluoroscopy during procedure. Please see procedure report for additional information. Electronically signed by: Rashard Gordon MD 08/16/2024 02:33 PM EDT
== END 2024-08-16 06:12 | disposition home or self-care (01) ==
LOC: CF 06:11
PROVIDERS: Visit Provider Internal Medicine
DX: M53.3 Sacrococcygeal disorders, not elsewhere classified (principal)
CPT/HCPCS: 27096; J2003; J2795; J3301

== ENCOUNTER 2024-08-16 10:42 | Outpatient (AMB) | payer BC, SELFPAY ==
--- NOTE | 2024-08-16 10:47 | A.OFFVIS_ITS ---
Vital Signs 08/16/24 10:48 08/16/24 11:01 BP 109/63 110/75 Blood Pressure Location Lt brachial Lt brachial Position Sitting Sitting Respiration 16 16 Pulse 64 59 Pulse Source Pulse Oximeter Pulse Oximeter Pulse Oximetry (%) 98 99 Oxygen Delivery Method Room Air Room Air Intake Visit Reasons: right theraputic SIJ inj Sales Coach Required: No Allergies No Known Allergies Allergy (Verified 08/16/24 10:48) Medication List - Last Reconciled 08/16/24 by Natasha Salinas LPN escitalopram oxalate (Lexapro) 20 mg PO DAILY ibuprofen 200 mg PO Q6H PRN HPI HPI right theraputic SIJ inj: Details: Patient presents for scheduled procedure. Denies any recent cough, cold, infection, fever or other significant changes in medical history since last office visit. 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 Immediately prior to starting the procedure, a time-out safety check was conducted. The patient's identification, procedure name, procedure site, and procedure laterality were confirmed with the patient. ? Patient was placed prone on the fluoroscopy table and the lumbosacral area was prepped using ChloraPrep and draped with sterile drapein standard fashion. The C-arm was rotated in a contralateral oblique fashion until the medial border of the iliac crest no longer foreshadowed the posterior sacroiliac joint line. The skin and subcutaneous tissue was anesthetized using 1 mL of 0.75% plain lidocaine with 1.5-inch 25-gauge needle in the middle region of the joint line.? A 3.5-inch 22-gauge spinal needle with small bend on the tip was slowly advanced towards the joint line, coaxial to the x-ray beam. Once bony content was obtained, the needle was easily slid into the intra-articular space.? Intra- articular needle position was confirmed using lateral fluoroscopy.? A total volume of 2.5mL of solution containing 40 mg triamcinolone and rest 0.5% of ropivacaine was injected intra-articularly. The stylet was reinserted and needle was removed. The patient tolerated the procedure well. Patient denied any lower extremity weakness or numbness. Patient was observed for 30 min and was discharged after fulfilling the standard discharge criteria. Coding 52510 - Sacroiliac Procedure code (CPT) selection complete Assessment & Plan Assessment & Plan (1) Sacroiliac joint dysfunction of right side: Code(s): M53.3 - Sacrococcygeal disorders, not elsewhere classified Category: Medical Plan Patient is status post therapeutic right sacroiliac joint injection. Patient tolerated procedure well and was discharged home in stable condition with discharge instructions. All questions were answered. We will follow-up via telephone or in clinic to assess response to therapy. A follow-up appointment was made during today's visit. Orders: Orders FL guidance in treatment room Today M53.3 - Sacrococcygeal disorders, not elsewhere classified Coding Level of Care Code Procedure Only Diagnoses Sacroiliac joint dysfunction of right side M53.3 CPT Codes Coding - Joint 9: 84427 - Sacroiliac ([id number])
[2024-08-16 10:48] VITALS: BP 109/63; PULSE 64; RESP 16; O2SAT 98
[2024-08-16 11:01] VITALS: BP 110/75; PULSE 59; RESP 16; O2SAT 99
--- OUTSIDE RECORDS SUMMARY | 2024-08-16 12:41 | XMS_ITS | Clinical Summary ---
Author Organization [facility] Address [address] [place] [address] Care Team Providers Care Placement Specialist Name Role Phone Shania Peterson PA-C Primary Care Provider [phone] Source Comments PLEASE NOTE, if this patient [...] Active Problems Problem Noted Date Diagnosed Date Chronic back pain 08/14/2024 Overview (08/14/2024): 08/09/2024 - [facility] - Dx: Chronic back pain/Dorsalgia; Myofascial pain; Sacroiliac joint dysfunction right side; Sacrococcygeal disorders - Right SI joint pain improved s/p injection - scheduled for therapeutic injection under Dr. Obando 08/16/2024 Sacroiliac joint dysfunction 07/27/2024 Overview (08/14/2024): 07/19/2024 - [facility] - Sacroiliac joint dysfunction of right side s/p sacroiliac joint injection 08/09/2024 - [facility] - Dx: Chronic back pain/Dorsalgia; Myofascial pain; Sacroiliac joint dysfunction right side; Sacrococcygeal disorders - Right SI joint pain improved s/p injection - scheduled for therapeutic injection under Dr. Obando 08/16/2024 MDD (major depressive disord er), recurrent episode, moderate ([facility]) 06/26/2024 Overview (06/26/2024): 06/21/2024 - [facility] - Psychiatry - Dx: MDD - Moderate H/O spine x-ray 05/30/2024 Overview (05/30/2024): 04/12/2024 - [facility] - lumbosacral spine x-ray - [...] 06/20/2024 Patient Self-Triage Initial Department [address] [place], [place] [id number] Provider, Nonbilling from Last 3 Months Immunizations Immunization Administration Dates Next Due Hep B,adult,adjuvanted (HEPLISAV) 02/09/2024,08/ Family History Medical History Relation Name Comments [...] Cervical Cancer Screening 2014 Pap Smear 2014 [id number] ( season) 2024 Imm-Influenza (#1) 2024 02/16/2019, [...] HEPATITIS C ANTIBODY NON-REACT LUKE NON-REACT LUKE [facility] Comment: HCV antibody was non-reactive. There is no laboratory evidence of HCV infection. In most cases, no further action is required. However, if recent HCV exposure is suspected, a test for HCV RNA (test code 96954) is suggested. For additional information please refer to http://education.[employer]/faq/BPA87u2 (This link is being provided for informational/ educational purposes only.) Blood Blood / Unknown 12/22/2023 1 0:05 AM EDT 12/22/2023 10:06 AM EDT Narrative [facility] - 12/23/2023 5:01 AM EDT FASTING:YES Shania Peterson PA-C LAB - BLOOD DRAW Edited Res ult - Final [facility] [address] [place] [id number], [facility] [address] [address] * HIV 1/2 AG & AB W/RFLX (4TH GEN) (12/22/2023 10:05 AM EDT) HIV AG/AB, 4TH GEN NON-REAC TIVE NON-REAC TIVE [facility] Comment: HIV-1 antigen and HIV-1/HIV-2 antibodies were [...] ?? For additional information please refer to http://education.[employer]/faq/DAN311 (This link is being provided for informational/ educational purposes only.) The performance of this assay has not been clinically validated in patients less than 2 years old. Blood Blood / Unknown 12/22/2023 1 0:05 AM EDT 12/22/2023 10:06 AM EDT Narrative [facility] - 12/23/2023 5:01 AM EDT FASTING:YES Shania Peterson PA-C LAB - BLOOD DRAW Final Resu lt [facility] [address] [place] [address], [facility] [address] [place] [phone] * LIPID PANEL (12/22/2023 10:05 AM EDT) CHOLESTEROL, TOTAL 158 <200 mg/dL [facility] HDL CHOLESTEROL 53 > OR = 50 mg/dL [facility] TRIGLYCERIDES 80 <150 mg/dL [facility] LDL-CHOLESTEROL 88 99 mg/dL (calc) [facility] Comment: Reference range: <100 Desirable range <100 mg/dL for primary prevention; ?? <70 mg/dL for patients with CHD or diabetic patients with > or = 2 CHD risk factors. LDL-C is now calculated using the Promise calculation, which is a validated novel method providing better accuracy than the Friedewald equation in the estimation of LDL-C. Carlito CHANG et al. QUAN. 2013;310(19): 3421-1353 (http://education.[employer]/faq/RMI683) CHOL/HDLC RATIO 3.0 <5.0 (calc) [facility] NON-HDL CHOLESTEROL 105 <130 mg/dL (calc) [facility] Comment: For patients with diabetes plus 1 major ASCVD risk factor, treating to a non-HDL-C goal of <100 mg/dL (LDL-C of <70 mg/dL) is considered a therapeutic option. Blood Blood / Unknown 12/22/2023 1 0:05 AM EDT 12/22/2023 10:06 AM EDT Narrative [facility] - 12/23/2023 5:01 AM EDT FASTING:YES Shania Peterson PA-C LAB - BLOOD DRAW Final Resu lt [facility] [address] [address], [facility] [address] [place] [address] from Last 3 Months or Most Recently Relevant to Health Maintenance Insurance [employer]/ [place] Member Subscriber Plan / Payer (Ef fective 2023-Present) Name:Anh Terry Relation to Subscriber:Self Name:Anh Terry Payer ID:[id number] Type:Indemnity Address: [facility] [id number] [place] [address] Care Teams Placement Specialist Relationship Specialty Start Date End Date Shania ePterson PA-C [address] [place] [address] PCP - General Primary Care 10/04/23
== END 2024-08-16 11:01 | disposition home or self-care (01) ==
LOC: HO.PMCPRC 10:42
PROVIDERS: PCP Student in an Organized Health Care Education/Training Program; Visit Provider Internal Medicine
DX: M53.3 Sacrococcygeal disorders, not elsewhere classified (principal)
CPT/HCPCS: 27096

== ENCOUNTER 2024-08-23 07:51 | Outpatient (RCR) | payer BC, SELFPAY ==
--- NOTE | 2024-05-31 12:56 | MHC.PT.EP ---
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 H/O VAGINAL BIRTHS x 2 W EPIDURALS, YOUNGEST IS 3 YO. SHE HAS HAD PT YEARS AGO AND DENIES RELIEF OF HER LBP-> PROPOSED THE CURRENT TREATMENT APPROACH AND THE Pt AGREES W THE POC. SHE IS A VERY GOOD PT CANDIDATE TO ADDRESS THE ABOVE FINDINGS. Frequency and Duration: The patient will be seen 2 ZX WK x 4 WKS Short Term Goals: *INITIATE HEP TO IMPROVE LE PROPRIOCEPTION/ LUMBOPELVIC STABILITY *Pt'S LB PAIN DECR TO 2-310 *INCR FLEXIB IN MUSHTAQ LEs *IMPROVE FUNCT SQUAT MECHANICS INCR ACTIV OF QUADS/ GLUTES Family Law Attorney Goals: *Pt DEMON APPROP BODY MECH W 3:3 SIMUL ADL/ WORK TASKS *Pt DEMON EFFICIENT LUMBOPELVIC/CORE ENGAGEMENT AND IMPROVE PROX LEs STRENGTH BY AT LEAST 1/2 GRADE *Pt INDEP W PROGRESSIVE HEP AND SELF-SX MGMT TECHN *Pt PERFORM REG ADLs / FITNESS WALKING/ WORK TASKS , EVIDENT W IMPROVED OSWESTRY SCORE (AT EVAL /50 ) Treatment Plan: Modalities to reduce pain, spasms and effusion. Manual therapy to restore motion and function. Therapeutic exercise to improve strength and flexibility. Neuromuscular re-education for posture and balance. Therapeutic activities to return to functional activities of daily living. Electronically signed by: MORE RODRIGUEZ,PT Please sign and return to therapist. Thank you for your referral.
--- NOTE | 2024-08-23 09:01 | MHC.PT.DC ---
[facility] [place] Office [place] Office [place] Office [address] Evangeilsta Lerner 140 [facility] [phone] F: [phone] F: [phone] F: [phone] F: [phone] Physical Therapy Discharge Report Diagnosis: CHRONIC BACK PAIN- MYOFASCIAL PAIN Date of Surgery: Date of Evaluation: 05/31/24 Date of Discharge: 08/23/24 Treatments to Date: 14 Cancellations to Date: 1 No Shows to Date: 0 Discharge Status: Achieved Goals Improved Function Independent with HEP Discharge Summary: SALONI HAS MADE GREAT PROGRESS IN PT- SHE HAS MET HER GOALS AT THIS TIME AND HAS A THOROUGH, PROGRESSIVE HEP TO CONT UPON D/C- MOST IMPORTANTLY, HER LBP HAS RELATIVELY RESOLVED- SHE HAS A MUCH GREATER AWARENESS OF POSTURE AND BODY MECH TO REDUCE RISK OF RE-INJURY OR EXACERBATION OF SXS W ADLs AND WORK TASKS. LEATHA IS D/C'D THIS DATE- HER OSWESTRY SCORE WAS 13/50 AT EVAL, AND , 4/50 AT D/C. Electronically signed by: MORE RODRIGUEZ,PT Please sign and return to therapist. Thank you for your referral.
== END 2024-08-23 09:02 | disposition home or self-care (01) ==
LOC: HO.PT 07:51
PROVIDERS: PCP Student in an Organized Health Care Education/Training Program; Visit Provider Physical Medicine & Rehabilitation
DX: M54.9 Dorsalgia, unspecified (principal); G89.29 Other chronic pain; M79.18 Myalgia, other site
CPT/HCPCS: 97110; 97112; 97140; 97162

== ENCOUNTER 2024-09-12 10:44 | Outpatient (AMB) | payer BC, SELFPAY ==
--- NOTE | 2024-09-12 10:45 | MHC.OFFVIS ---
Intake Visit Reasons: s/p right theraputic SIJ inj Allergies No Known Allergies Allergy (Verified 08/16/24 10:48) HPI HPI s/p right theraputic SIJ inj: Details: History of Present Illness The patient is a 29-year-old female presenting for follow-up after a right therapeutic sacral injection. Initially, she suffered from sacral region pain, prompting the intervention. Following the injection, she experienced a complete resolution of her symptoms, reporting 100% pain relief and engaging in daily activities without impediment. Pain Description - Onset and Timing: Post-procedural follow-up - Quality and Character: Pain was localized to the sacral region - Primary Location: Sacral region - Exacerbating Factors: Previously present before injection - Alleviating Factors: Therapeutic sacral injection provided complete relief Pain Management - Affect: Improved; no negative impact on mood or psychological wellbeing currently - Analgesia: No ongoing pain, hence no current analgesic requirement - Adverse Effects: None from the injection as reported - Activities of Daily Living: Fully resumed without any restrictions - Aberrant Drug Related Behaviors: None reported or suspected PFSH Medical History (Updated 04/12/24 @ 10:41 by Natalia Mercado MD) Chronic back pain Social History Current occupational status: employed 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[employer], 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 Telehealth Telehealth Telehealth Platform: [employer] Location of provider rendering services: practice address Location of patient: address on file Patient Identification confirmed using: Name, : Yes Telehealth method: video Patient verbally consented to treatment: Yes Patient verbally consented to billing insurance company: Yes Patient informed of any privacy concerns related to visit: Yes Minutes spent on Phone/Video with Pt.: 2 Assessment & Plan Assessment & Plan (1) Sacroiliac joint dysfunction of right side: Code(s): M53.3 - Sacrococcygeal disorders, not elsewhere classified Category: Medical Plan Plan - Encourage patient to monitor symptom recurrence and follow up if symptoms return. Patient was informed and verbally consented to the use of an ambient scribe for clinic note documentation during this visit. Discussion Notes During the telehealth consultation, I reviewed with the patient the outcome of her recent right therapeutic sacral injection. The patient reported complete resolution of pain, resuming daily activities without difficulties. I discussed the importance of monitoring for any recurrence of symptoms, providing reassurance and guidance on reaching out for further evaluation if needed. We had a detailed conversation regarding no immediate need for further intervention given the current symptomatic resolution. Patient Instructions - Continue daily activities as usual. - Monitor for any return of symptoms. - Contact us if you experience any pain or issues in the future. Coding Level of Care Code Tele Est Pt Level 2 (12755) Diagnoses Sacroiliac joint dysfunction of right side M53.3
--- OUTSIDE RECORDS SUMMARY | 2024-09-12 12:02 | XMS_ITS | Clinical Summary ---
Author Organization [facility] Address [address] [place] [address] Care Team Providers Care [employer] Coordinator Name Role Phone Shania Peterson PA-C Primary Care Provider [phone] [phone] Source Comments PLEASE NOTE, if this patient [...] mouth once daily 30 Tablet 2 5 08/30/19 25 Discontinu ed(Reorder (E-Cancel Not Sent)) Active Problems Problem Noted Date Diagnosed Date Chronic back pain 08/14/2024 Overview (08/14/2024): 08/09/2024 - [facility] - Dx: Chronic back pain/Dorsalgia; Myofascial pain; Sacroiliac joint dysfunction right side; Sacrococcygeal disorders - Right SI joint pain improved s/p injection - scheduled for therapeutic injection under Dr. Obando 08/16/2024 Sacroiliac joint dysfunction 07/27/2024 Overview (08/14/2024): 07/19/2024 - [facility] - Sacroiliac joint dysfunction of right side s/p sacroiliac joint injection 08/09/2024 - [facility] - Dx: Chronic back pain/Dorsalgia; Myofascial pain; Sacroiliac joint dysfunction right side; Sacrococcygeal disorders - Right SI joint pain improved s/p injection - scheduled for therapeutic injection under Dr. Obando 08/16/2024 MDD (major depressive disord er), recurrent episode, moderate ([facility]) 06/26/2024 Overview (06/26/2024): 06/21/2024 - [facility] - Psychiatry - Dx: MDD - Moderate H/O spine x-ray 05/30/2024 Overview (05/30/2024): 04/12/2024 - [facility] - lumbosacral spine x-ray - [...] 06/20/2024 Patient Self-Triage Initial Department [address] [place], [place] [id number] Provider, Nonbilling from Last 3 Months Immunizations [...] Date Last Done Comments Anxiety Screening 1993 12/22/2023 HPV Screening 1993 Pap + HPV 1993 Cervical Cancer Screening 2014 Pap Smear 2014 [id number]-89 ( season) 2024 Imm-Influenza (#1) 2024 02/16/2019, [...] HEPATITIS C ANTIBODY NON-REACT LUKE NON-REACT LUKE [facility] Comment: HCV antibody was non-reactive. There is no laboratory evidence of HCV infection. In most cases, no further action is required. However, if recent HCV exposure is suspected, a test for HCV RNA (test code 84662) is suggested. For additional information please refer to http://education.[employer]/faq/CRQ12h6 (This link is being provided for informational/ educational purposes only.) Blood Blood / Unknown 12/22/2023 1 0:05 AM EDT 12/22/2023 10:06 AM EDT Narrative [facility] - 12/23/2023 5:01 AM EDT FASTING:YES us Shania Peterson PA-C LAB - BLOOD DRAW Edited Res ult - Final [facility] [address] [place] [address], [facility] [address] [address] * HIV 1/2 AG & AB W/RFLX (4TH GEN) (12/22/2023 10:05 AM EDT) HIV AG/AB, 4TH GEN NON-REAC TIVE NON-REAC TIVE [facility] Comment: HIV-1 antigen and HIV-1/HIV-2 antibodies were [...] ?? For additional information please refer to http://education.[employer]/faq/BLK554 (This link is being provided for informational/ educational purposes only.) The performance of this assay has not been clinically validated in patients less than 2 years old. Blood Blood / Unknown 12/22/2023 1 0:05 AM EDT 12/22/2023 10:06 AM EDT Narrative [facility] - 12/23/2023 5:01 AM EDT FASTING:YES Shania Peterson PA-C LAB - BLOOD DRAW Final Resu lt [facility] [address] [place] [address], [facility] [address] [phone] * LIPID PANEL (12/22/2023 10:05 AM EDT) Pathologist [facility] CHOLESTEROL, TOTAL 158 <200 mg/dL [facility] HDL CHOLESTEROL 53 > OR = 50 mg/dL [facility] TRIGLYCERIDES 80 <150 mg/dL [facility] LDL-CHOLESTEROL 88 99 mg/dL (calc) [facility] Comment: Reference range: <100 Desirable range <100 mg/dL for primary prevention; ?? <70 mg/dL for patients with CHD or diabetic patients with > or = 2 CHD risk factors. LDL-C is now calculated using the Promise calculation, which is a validated novel method providing better accuracy than the Friedewald equation in the estimation of LDL-C. Carlito CHANG et al. QUAN. 2013;310(19): 2141-2747 (http://education.[employer]/faq/CDH974) CHOL/HDLC RATIO 3.0 <5.0 (calc) [facility] NON-HDL CHOLESTEROL 105 <130 mg/dL (calc) [facility] Comment: For patients with diabetes plus 1 major ASCVD risk factor, treating to a non-HDL-C goal of <100 mg/dL (LDL-C of <70 mg/dL) is considered a therapeutic option. Blood Blood / Unknown 12/22/2023 1 0:05 AM EDT 12/22/2023 10:06 AM EDT Narrative [facility] - 12/23/2023 5:01 AM EDT FASTING:YES Shania Peterson PA-C LAB - BLOOD DRAW Final Resu lt [facility] [address] [address], [facility] [address] [place] [address] from Last 3 Months or Most Recently Relevant to Health Maintenance Insurance [employer]IAS CROSS/[employer] [place] Member Subscriber Plan / Payer (Ef fective 2023-Present) Name:Anh Terry Relation to Subscriber:Self Name:Anh Terry Payer ID:[id number] Type:Indemnity Address: [facility] [id number] [place] [address] Care Teams High School Coordinator Relationship Specialty Start Date End Date Shania Peterson PA-C [address] [place] [address] PCP - General Primary Care 10/04/23
== END 2024-09-12 10:45 | disposition home or self-care (01) ==
LOC: HO.PMC 10:44
PROVIDERS: PCP Student in an Organized Health Care Education/Training Program; Visit Provider Internal Medicine
DX: M53.3 Sacrococcygeal disorders, not elsewhere classified (principal)
CPT/HCPCS: 99212

== ENCOUNTER → 2024-09-12 10:44 | Outpatient (BNVA) | payer BC, SELFPAY | PROVIDERS: PCP Student in an Organized Health Care Education/Training Program; Visit Provider Internal Medicine | DX: Z13.89 Encounter for screening for other disorder (principal) ==